=== PATIENT | male | born 1945 | race Caucasian/White ===

== ENCOUNTER 2019-05-09 08:55 | Inpatient (IN) | payer MEDICARE ==
--- NOTE | 2019-05-09 10:02 | CON ---
DATE OF CONSULTATION: 05/09/2019 HISTORY OF PRESENT ILLNESS: This is a 73-year-old gentleman who has been developing progressive dyspnea on exertion with no chest pain. This has been progressive over the last 2 months and he went to see Dr. Thakur, who recommended Dr. Hernandez perform an evaluation. He has multiple cardiovascular risk factors including hypertension, dyslipidemia, and age. 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 He has had a diagnosis of fibromyalgia for which he is on low-dose prednisone. MEDICATIONS: His other medications include the prednisone, irbesartan 150 mg daily, finasteride 5 mg daily, Flomax 0.4 a day, prednisone 5 mg a day. PAST SURGICAL HISTORY: Bilateral cataract procedures, lipoma removal from his back, and UroLift by Dr. Schreiber. Retinal artery detachment, treated with 2 procedures. SOCIAL HISTORY: He has not smoked in greater than 10 years. He is and his is currently being treated for liver cancer. He is accompanied today by his daughter. PHYSICAL EXAMINATION: GENERAL: He is alert, cooperative gentleman, in no distress. No discomfort. VITAL SIGNS: Blood pressure of 150/85, heart rate 78, weight 194. NECK: No carotid bruits. HEAD, EARS, EYES, NOSE, AND THROAT: His right lid is somewhat droopy. HEART: Regular rate and rhythm. No murmurs. LUNGS: Clear to auscultation. ABDOMEN: Soft, nontender. EXTREMITIES: No edema. Palpable pedal pulses. PLAN: Cardiac catheterization today shows critical stenosis in the mid to distal right coronary artery with a small nondominant circumflex system without significant disease in LAD with about a 60% to 70% stenosis involving a larger diagonal and then about 40% stenosis in the LAD after that. Dr. Hernandez feels that surgical intervention is more appropriate than stenting at this time, so we will plan on coronary bypass grafting to the LAD, diagonal and right coronary artery. Informed consent has been obtained. Job ID: [id number]
[2019-05-09] MEDS ORDERED: Norepinephrine 4 MG/4 ML VIAL ONE (10:28)
[2019-05-09] MEDS ORDERED: Fentanyl 100 MCG/2 ML VIAL ONE (10:29)
[2019-05-09] MEDS ORDERED: Nitroglycerin 50 MG/250 ML BOT 250 ML ONE (10:29)
[2019-05-09] MEDS ORDERED: Albumin 5% 500 ML ONE (10:42)
[2019-05-09 10:45] VITALS: BMI 26.2
[2019-05-09] MEDS ORDERED: Aminocaproic Acid 5 GM/20 ML VIAL ONE (10:48)
[2019-05-09] MEDS ORDERED: Calcium Chloride 1 GM/10 ML Abboject SYRINGE ONE (10:48)
[2019-05-09] MEDS ORDERED: Thrombin 5000 UNITS/5 ML VIAL ONE (10:48)
[2019-05-09] MEDS ORDERED: Sodium Bicarb 50 MEQ/50 ML Abboject 8.4% SYRINGE ONE (10:48)
[2019-05-09] MEDS ORDERED: PROPOFOL 200 MG/20 ML VIAL ONE (10:48)
[2019-05-09] MEDS ORDERED: Rocuronium Bromide 10 MG/ML (10ML VIAL) ONE (10:48)
[2019-05-09] MEDS ORDERED: Magnesium Sulfate 1 GM/2 ML VIAL ONE (10:48)
[2019-05-09] MEDS ORDERED: Papaverine 60 MG/2 ML VIAL ONE (10:48)
[2019-05-09] MEDS ORDERED: Protamine Sulfate 250 MG/25 ML VIAL ONE (10:48)
[2019-05-09] MEDS ORDERED: Heparin 5,000 UNITS/ML VIAL ONE (10:48)
[2019-05-09] MEDS ORDERED: Lidocaine 2% PF 5 ML VIAL ONE (10:48)
[2019-05-09] MEDS ORDERED: Cardioplegic Soln 1,000 ML BAG ONE (10:48)
[2019-05-09] MEDS ORDERED: Potassium Chloride 60 MEQ/30 ML VIAL ONE (10:48)
[2019-05-09] MEDS ORDERED: Heparin 30,000 units/30 ml VIAL ONE (10:48)
[2019-05-09] MEDS ORDERED: Vecuronium 10 MG VIAL ONE (10:48)
[2019-05-09] MEDS ORDERED: Heparin 10,000 UNITS/1 ML VIAL 30,000 UNITS in Sodium Chloride 0.9% 1,000 ML FS SCH (11:00)
[2019-05-09] MEDS ORDERED: Sodium Chloride 0.9% 1,000 ML IV SCH (11:15)
[2019-05-09] MEDS ORDERED: Midazolam HCl 2 mg/2 ml Vial ONE (11:25)
[2019-05-09] MEDS ORDERED: Ketamine 50 MG/ML (10ML VIAL) ONE (11:25)
[2019-05-09] MEDS ORDERED: Prevnar 13-Val Conj/PF 0.5 ML SYRINGE IM ONE (12:15)
[2019-05-09] MEDS ORDERED: PHENYLEPHRINE-NS 100 MCG/ML 10 ML SYRINGE ONE (12:49)
[2019-05-09] MEDS ORDERED: Bisacodyl 5 MG TAB PO PRN (14:34)
[2019-05-09] MEDS ORDERED: Guaifenesin DM 100-10/5 ML UDCUP PO PRN (14:34)
[2019-05-09] MEDS ORDERED: Morphine 2 MG/ML SYRINGE SLOW IVP PRN (14:34)
[2019-05-09] MEDS ORDERED: Post-Op Insulin Drip Protocol IVPB ONE (14:34)
[2019-05-09] MEDS ORDERED: Promethazine HCl 25 MG/ML VIAL IM PRN (14:34)
[2019-05-09] MEDS ORDERED: Norepinephrine 8 MG in Dextrose 5% in Water 242 ML IVPB PRN (14:34)
[2019-05-09] MEDS ORDERED: Potassium Chloride 20 MEQ/100 ML PREMIX BAG IVPB PRN (14:34)
[2019-05-09] MEDS ORDERED: Fentanyl 100 MCG/2 ML VIAL SLOW IVP PRN (14:34)
[2019-05-09] MEDS ORDERED: Acetaminophen 325 MG TAB PO PRN (14:34)
[2019-05-09] MEDS ORDERED: Magnesium 2 GM/50 ML 2 GM in Premix Bag 1 BAG IVPB SCH (14:34)
[2019-05-09] MEDS ORDERED: Ondansetron PF 4 MG/2 ML Vial IVP PRN (14:34)
[2019-05-09] MEDS ORDERED: Mag-Al 1200 mg/1200 mg/30 ML UDCUP PO PRN (14:34)
[2019-05-09] MEDS ORDERED: predniSONE 1 MG TAB PO SCH (14:34)
[2019-05-09] MEDS ORDERED: Hetastarch 6% 500 ML 500 ML IVPB PRN (14:34)
[2019-05-09] MEDS ORDERED: Nitroglycerin 50 MG/250 ML BOT 250 ML IVPB PRN (14:34)
[2019-05-09] MEDS ORDERED: HYDROcodone/Acetaminophen 5/325 mg Tablet PO PRN (14:34)
[2019-05-09] MEDS ORDERED: Bisacodyl 10 MG SUPP PR PRN (14:34)
[2019-05-09] MEDS ORDERED: hydrALAZINE 20 MG/ML VIAL SLOW IVP PRN (14:34)
[2019-05-09] MEDS ORDERED: DOPamine 400 MG/D5W 250 ML 250 ML IVPB PRN (14:34)
[2019-05-09] MEDS ORDERED: niCARdipine 25 MG in Sodium Chloride 0.9% 250 ML 250 ML IVPB PRN (14:34)
[2019-05-09 14:54] LABS: Base Excess (BEa) -0.9 mEq/L (-2.0 to +3.0); CO2 Tension 40.7 mmHg (35.0-45.0); Calcium, Ionized 1.14 mmol/L (1.12-1.30); Carboxyhemoglobin (COHb) 0.5 gm% (0.0-3.0); Hemoglobin (Hb) 13.7 g/dL (14.0-18.0); O2 Tension (PaO2) 246.1 mmHg (> 70.0); Potassium - ABG Lab 3.29 mmol/L (3.70-5.30); pH, Arterial 7.39 (7.35-7.45)
[2019-05-09 14:55] LABS: ALV-art Gradient 130.825 (0-20); Puncture Site ALINE
[2019-05-09] MEDS ORDERED: HUMULIN R 100 UNITS in Sodium Chloride 0.9% 100 ML IVPB SCH (15:02)
[2019-05-09] MEDS ORDERED: Dextrose 50% Abboject 50 ML SYRINGE SLOW IVP PRN (15:02)
[2019-05-09] MEDS ORDERED: Insulin Regular 300 UNITS/3 ML VIAL SC PRN (15:02)
[2019-05-09] MEDS ORDERED: Dextrose 5% in Water 1,000 ML IV PRN (15:02)
--- NOTE | 2019-05-09 15:04 | RAD ---
CHEST 1 VIEW: Date: 05/09/2019 HISTORY: Postop open heart surgery. FINDINGS: Chest tubes, endotracheal tube, and right central line in place. Heart size is within normal limits. The lungs appear clear of acute process. No pneumothorax or significant pleural effusion. IMPRESSION: No significant acute process. No pneumothorax. POS: RRE
[2019-05-09 15:06] LABS: INR-International Normal Ratio 1.3; PTT 27.8 SEC (22.9-36.1); Prothrombin Time 16.5 SEC (12.0-14.7)
[2019-05-09 15:07] LABS: #Eosinphils 0.1 thou/uL (0.0-0.7); #Monocytes 1.1 thou/uL (0.11-0.59); #Neutrophils 14.2 thou/uL (1.40-6.50); %Basophils 0.1 % (0.0-1.0); %Eosinophils 0.5 % (0.0-10.0); %Lymphocytes 5.9 % (21.0-51.0); %Monocytes 6.7 % (0.0-10.0); %Neutrophils 86.7 % (42.0-75.0); Hemoglobin 14.4 g/dL (14.0-18.0); Mean Corpuscular HGB CONC 34.5 g/dL (32.0-36.0); Mean Corpuscular Volume 89.6 fL (78.0-98.0); Mean Platelet Volume 8.2 fL (7.4-10.4); Platelet Count 115 thou/uL (130-400); RBC Distribution Width 11.8 % (11.5-14.5); Red Blood Cell (RBC) Count 4.66 mill/uL (4.70-6.10); White Blood Cell (WBC) Count 16.4 thou/uL (4.8-10.8)
[2019-05-09] MEDS: Sodium Chloride 0.9% 1,000 ML IV SCH (15:10)
[2019-05-09 15:17] LABS: Anion Gap 9 mmol/L (10-20); BUN (Urea Nitrogen) 12 mg/dL (8.4-25.7); Calc. Creatinine Clearance 101 mL/min (70-130); Calcium 7.8 mg/dL (7.8-10.44); Carbon Dioxide 25 mmol/L (23-31); Chloride 111 mmol/L (98-107); Estimated GFR-MDRD Greater than 90; Glucose 107 mg/dL (83-110); Potassium 3.3 mmol/L (3.5-5.1); Sodium 142 mmol/L (136-145)
[2019-05-09 15:18] LABS: Platelet Morphology Comment Appears Decreased; RBC Morphology Normal
[2019-05-09] MEDS: CEFAZOLIN 2 GM in Premix Bag 1 BAG IVPB SCH ×2 (16:02→23:06)
[2019-05-09] MEDS: Ketorolac Tromethamine 30 MG/ML VIAL IVP SCH ×2 (17:17→23:07)
[2019-05-09 19:09] LABS: Actual Bicarbonate (HCO3a) 19.1 mEq/L (22-28); CO2 Tension 27.1 mmHg (35.0-45.0); Calcium, Ionized 1.08 mmol/L (1.12-1.30); Carboxyhemoglobin (COHb) 0.5 gm% (0.0-3.0); Hemoglobin (Hb) 14.8 g/dL (14.0-18.0); O2 Tension (PaO2) 181.3 mmHg (> 70.0); Potassium - ABG Lab 3.49 mmol/L (3.70-5.30); pH, Arterial 7.47 (7.35-7.45)
[2019-05-09 19:11] LABS: Puncture Site LINE
[2019-05-09 19:12] LABS: ALV-art Gradient 70.025 (0-20)
[2019-05-09] MEDS: Fentanyl 100 MCG/2 ML VIAL SLOW IVP PRN ×3 (19:38→23:49)
[2019-05-09 20:25] LABS: Hemoglobin 14.9 g/dL (14.0-18.0)
[2019-05-09] MEDS: HYDROcodone/Acetaminophen 5/325 mg Tablet PO PRN (20:28)
[2019-05-09 20:43] LABS: Potassium 3.4 mmol/L (3.5-5.1)
[2019-05-09] MEDS: Famotidine/PF 20 mg/2ml Vial SLOW IVP SCH (21:42)
[2019-05-10] MEDS: HYDROcodone/Acetaminophen 5/325 mg Tablet PO PRN ×4 (03:01→23:13)
[2019-05-10] MEDS: Sodium Chloride 0.9% 1,000 ML IV SCH ×2 (03:05→11:14)
[2019-05-10 05:30] LABS: Anion Gap 11 mmol/L (10-20); BUN (Urea Nitrogen) 10 mg/dL (8.4-25.7); Calc. Creatinine Clearance 100 mL/min (70-130); Calcium 7.6 mg/dL (7.8-10.44); Carbon Dioxide 24 mmol/L (23-31); Chloride 107 mmol/L (98-107); Estimated GFR-MDRD Greater than 90; Glucose 102 mg/dL (83-110); Potassium 3.6 mmol/L (3.5-5.1); Sodium 138 mmol/L (136-145)
[2019-05-10] MEDS: Fentanyl 100 MCG/2 ML VIAL SLOW IVP PRN ×2 (05:54→07:59)
[2019-05-10] MEDS: Ketorolac Tromethamine 30 MG/ML VIAL IVP SCH ×2 (06:31→11:09)
[2019-05-10] MEDS: Atorvastatin Calcium 20 MG TAB PO SCH (07:51)
[2019-05-10] MEDS: Finasteride 5 MG TAB PO SCH (07:51)
[2019-05-10] MEDS: Tamsulosin HCl 0.4 MG CAP PO SCH (07:51)
[2019-05-10] MEDS: Famotidine/PF 20 mg/2ml Vial SLOW IVP SCH (07:52)
[2019-05-10] MEDS: CEFAZOLIN 2 GM in Premix Bag 1 BAG IVPB SCH (07:53)
--- NOTE | 2019-05-10 08:02 | PRG ---
DATE OF SERVICE: 05/10/2019 SUBJECTIVE: Mr. Desouza is doing very well postoperatively. He had urgent bypass surgery yesterday. OBJECTIVE: VITAL SIGNS: His blood pressure is 160/68 earlier, but most recently was 92/54. LUNGS: Clear. CARDIAC: Normal S1, normal S2. ABDOMEN: Soft, nontender. EXTREMITIES: No edema. ASSESSMENT: Status post emergency coronary artery bypass grafting, doing very well. PLAN: 1. Continue current medical regimen. 2. We will start beta blockers later for atrial fibrillation prophylaxis once blood pressure increases. Job ID: [id number] [facility]
--- NOTE | 2019-05-10 08:41 | RAD ---
PORTABLE CHEST: Date: 05/10/2019 PROVIDED CLINICAL HISTORY: Post open heart. FINDINGS: Comparison with 05/09/2019. Interval extubation. Additional significant interval change with respect to the prior examination is not apparent. IMPRESSION: As above. POS: LATOYA
[2019-05-10] MEDS ORDERED: Aspirin 325 MG TAB PO SCH (09:00)
[2019-05-10 10:08] LABS: #Lymphocytes 0.7 thou/uL (1.20-3.40); #Monocytes 1.1 thou/uL (0.11-0.59); #Neutrophils 8.9 thou/uL (1.40-6.50); %Basophils 0.1 % (0.0-1.0); %Eosinophils 0.1 % (0.0-10.0); %Lymphocytes 6.8 % (21.0-51.0); %Monocytes 9.9 % (0.0-10.0); Hemoglobin 14.5 g/dL (14.0-18.0); Mean Corpuscular HGB CONC 34.2 g/dL (32.0-36.0); Mean Corpuscular Hemoglobin 31.2 pg (27.0-31.0); Mean Corpuscular Volume 91.2 fL (78.0-98.0); Mean Platelet Volume 8.8 fL (7.4-10.4); Platelet Count 135 thou/uL (130-400); Red Blood Cell (RBC) Count 4.65 mill/uL (4.70-6.10); White Blood Cell (WBC) Count 10.7 thou/uL (4.8-10.8)
--- NOTE | 2019-05-10 10:19 | PRG ---
DATE OF SERVICE: 05/10/2019 SUBJECTIVE: The patient has been stable post CABG yesterday with blood pressure of about 100 to 110, heart rate of about 70. Chest tube output totals at 330. His hemoglobin was not checked this morning, but last night was about 14. His renal function is normal. His potassium was slightly depressed prior to potassium replacement. His chest x-ray was satisfactory. He has been up in the chair this morning, but currently is in bed without complaints. Lungs are clear. Chest dressing is dry. PLAN: At this time is to transfer him to the telemetry unit and probably remove his Portillo and chest tubes tomorrow. The patient has no complaints at present. Job ID: [id number]
[2019-05-10] MEDS ORDERED: Ondansetron PF 4 MG/2 ML Vial IVP PRN (11:51)
[2019-05-10] MEDS ORDERED: Mag-Al 1200 mg/1200 mg/30 ML UDCUP PO PRN (11:51)
[2019-05-10] MEDS ORDERED: Bisacodyl 10 MG SUPP PR PRN (11:51)
[2019-05-10] MEDS ORDERED: Acetaminophen 325 MG TAB PO PRN (11:51)
[2019-05-10] MEDS ORDERED: Nitroglycerin 0.4 MG TAB (25 Tab Bottle) SL PRN (11:51)
[2019-05-10] MEDS ORDERED: Fentanyl 100 MCG/2 ML VIAL SLOW IVP PRN (11:51)
[2019-05-10] MEDS ORDERED: HYDROcodone/Acetaminophen 5/325 mg Tablet PO PRN (11:51)
[2019-05-10] MEDS ORDERED: Milk Of Magnesia 30 ML UDCUP PO PRN (11:51)
[2019-05-10] MEDS ORDERED: Guaifenesin DM 100-10/5 ML UDCUP PO PRN (11:51)
[2019-05-10] MEDS ORDERED: Mineral Oil ENEMA PR PRN (11:51)
[2019-05-10] MEDS: Enoxaparin Sodium 30 MG/0.3 ML SYRINGE SC SCH (20:46)
[2019-05-10] MEDS: Famotidine 20 MG TAB PO SCH (20:47)
[2019-05-11] MEDS: HYDROcodone/Acetaminophen 5/325 mg Tablet PO PRN ×2 (05:35→19:11)
[2019-05-11] MEDS ORDERED: Metoprolol Tartrate 25 MG TAB PO SCH (09:00)
--- NOTE | 2019-05-11 09:02 | OP ---
DATE OF PROCEDURE: 05/09/2019 PREOPERATIVE DIAGNOSIS: Coronary artery disease. PROCEDURES PERFORMED: Coronary artery bypass graft x3, left internal mammary artery to the left anterior descending with the left anterior descending being about 1.5 mm, a soft vessel, saphenous vein good quality to a 2 mm diagonal and a 3 mm right coronary artery done just at the takeoff of the posterior descending artery, but on the main right coronary artery. PETROLEUM GEOLOGIST: Bassam. TRANSFUSION: None. DESCRIPTION OF PROCEDURE: After adequate anesthesia had been obtained, the patient was prepped and draped. Dr. Banegas did an endovascular vein harvest on the left greater saphenous vein while I performed a median sternotomy. After opening the sternum, left internal mammary artery was harvested and divided distally after heparinization and treated with intraluminal papaverine. It was brought medial to the lung, posterior to the thymus gland. Due to hyperexpanded lungs, the entire length of mammary artery was utilized. Aorta and right atrium were cannulated and cardiopulmonary bypass was begun. After cross-clamping the aorta, a liter of cold blood cardioplegia was given through the aortic root. Following this, vessels were bypassed x3 and the cross-clamp was removed and the partial occluding clamp placed. Two proximal venous anastomosis were performed on the aortic root and marked with rings. Distal anastomoses were hemostatic and the patient was weaned from cardiopulmonary bypass. Cannula was removed and the aortic cannulation site secured with a 4-0 Prolene suture. Mediastinal drains x2 were placed, following which the sternum was reapproximated with #7 interrupted wire using vancomycin paste on the sternal edges, platelet-rich blood and platelet-poor plasma. Subcutaneous tissue and skin were closed in layers. Job ID: [id number]
[2019-05-11] MEDS: Polyethylene Glycol 3350 17 GM Packet PO SCH (09:04)
[2019-05-11] MEDS: Bisacodyl 5 MG TAB PO PRN (09:04)
[2019-05-11] MEDS: predniSONE 1 MG TAB PO SCH (09:05)
[2019-05-11] MEDS: Atorvastatin Calcium 20 MG TAB PO SCH (09:06)
[2019-05-11] MEDS: Aspirin 325 mg Enteric Coated Tablet PO SCH (09:07)
[2019-05-11] MEDS: Famotidine 20 MG TAB PO SCH ×2 (09:07→20:11)
[2019-05-11] MEDS: Tamsulosin HCl 0.4 MG CAP PO SCH (09:07)
[2019-05-11] MEDS: Finasteride 5 MG TAB PO SCH (09:07)
--- NOTE | 2019-05-11 09:37 | PRG ---
DATE OF SERVICE: 05/11/2019 SUBJECTIVE: Mr. Desouza is doing really very well. He did have some lightheadedness when he sat up in the chair, it sounds like he had some orthostasis, but now he is sitting in the chair, feeling fine. OBJECTIVE: VITAL SIGNS: His blood pressure in the chart was recorded at 160 systolic, but it was 106 systolic in the correction most recently, pulse is 90. LUNGS: Clear. CARDIAC: Normal S1. Normal S2. ABDOMEN: Soft and nontender. ASSESSMENT: Blood pressure is somewhat labile postoperatively. PLAN: 1. I resume beta-dale later today but will reduce dose in view of orthostasis. 2. Dr. Hernandez to return tomorrow. Job ID: [id number]
--- NOTE | 2019-05-11 09:47 | PRG ---
DATE OF SERVICE: 05/11/2019 The patient had slightly elevated blood pressures overnight 130 to 160. However, this morning, sitting in a chair, it is about 110 and he is somewhat lightheaded, although normal in conversation. His chest tube output was 30 for the past 12 hours and these two drains were removed. His Portillo catheter was removed earlier. His lungs are clear and his chest dressing is dry. Plan on ambulation today and hopefully we can move forward with gentle diuresis and perhaps start some low-dose beta dale tomorrow. Job ID: [id number]
[2019-05-11] MEDS: Enoxaparin Sodium 30 MG/0.3 ML SYRINGE SC SCH (20:11)
[2019-05-12] MEDS: Potassium Chloride 10 MEQ TAB PO SCH (07:24)
[2019-05-12] MEDS: Furosemide 40 MG TAB PO SCH (07:24)
[2019-05-12] MEDS: Atorvastatin Calcium 20 MG TAB PO SCH (08:46)
[2019-05-12] MEDS: Aspirin 325 mg Enteric Coated Tablet PO SCH (08:46)
[2019-05-12] MEDS: Famotidine 20 MG TAB PO SCH ×2 (08:47→20:22)
[2019-05-12] MEDS: Finasteride 5 MG TAB PO SCH (08:47)
[2019-05-12] MEDS: Polyethylene Glycol 3350 17 GM Packet PO SCH (08:49)
[2019-05-12] MEDS: Tamsulosin HCl 0.4 MG CAP PO SCH (08:50)
[2019-05-12] MEDS: predniSONE 1 MG TAB PO SCH (08:50)
[2019-05-12] MEDS: Enoxaparin Sodium 30 MG/0.3 ML SYRINGE SC SCH (20:23)
[2019-05-12] MEDS: Bisacodyl 5 MG TAB PO PRN (20:29)
[2019-05-13] MEDS: Furosemide 40 MG TAB PO SCH (09:34)
[2019-05-13] MEDS: Atorvastatin Calcium 20 MG TAB PO SCH (09:34)
[2019-05-13] MEDS: Finasteride 5 MG TAB PO SCH (09:34)
[2019-05-13] MEDS: Tamsulosin HCl 0.4 MG CAP PO SCH (09:34)
[2019-05-13] MEDS: Famotidine 20 MG TAB PO SCH (09:35)
[2019-05-13] MEDS: Aspirin 325 mg Enteric Coated Tablet PO SCH (09:35)
[2019-05-13] MEDS: Potassium Chloride 10 MEQ TAB PO SCH (09:35)
[2019-05-13] MEDS: Polyethylene Glycol 3350 17 GM Packet PO SCH (09:36)
[2019-05-13] MEDS: predniSONE 1 MG TAB PO SCH (09:57)
[2019-05-13 11:39] VITALS: BP 120/78; TEMP 98.8
--- NOTE | 2019-05-13 14:15 | DIS ---
DATE OF ADMISSION: 05/09/2019 DATE OF DISCHARGE: 05/13/2019 HOSPITAL COURSE: The patient was admitted on 05/08 following cardiac catheterization showing severe coronary artery disease. He underwent coronary artery bypass grafting x3 with a HOOD to the LAD, saphenous vein to a diagonal and a right coronary artery. His postoperative course was uneventful with no arrhythmias. He did however have a failure to void after removal of his Portillo with a 925 mL residual and a history of previous bladder and prostate problems, followed by Dr. Schreiber. He will be discharged home on his admitting medications except for his irbesartan, which is on hold and he will receive a prescription for Toprol-XL 25 half a tablet daily as well as Cameron 5. He will need a followup visit at least by phone with Dr. Schreiber to make plans for how long to leave his Portillo catheter and whether self catheterization will be needed at home. He is on Proscar and Flomax. Job ID: [id number]
== END 2019-05-13 11:47 | disposition home or self-care (01) | DRG 236 ==
LOC: CCU 08:55 → UNDOADMIN 08:55 → CCU 09:50 → 2NO 05-10 11:36
PROVIDERS: ADMIT Internal Medicine Cardiovascular Disease; ATTEND Internal Medicine Cardiovascular Disease
PROC: 02100Z9 Bypass Coronary Artery, One Artery from Left Internal Mammary, Open Approach (ICD-10-PCS; principal; 2019-05-09)
PROC: 06BP4ZZ Excision of Right Saphenous Vein, Percutaneous Endoscopic Approach (ICD-10-PCS; 2019-05-09)
PROC: 5A1221Z Performance of Cardiac Output, Continuous (ICD-10-PCS; 2019-05-09)
PROC: 021109W Bypass Coronary Artery, Two Arteries from Aorta with Autologous Venous Tissue, Open Approach (ICD-10-PCS; 2019-05-09)
DX: I25.10 Atherosclerotic heart disease of native coronary artery without angina pectoris (principal); M79.7 Fibromyalgia; I10 Essential (primary) hypertension; E78.5 Hyperlipidemia, unspecified; Z98.42 Cataract extraction status, left eye; Z98.41 Cataract extraction status, right eye
CPT/HCPCS: 36415; 36416; 36430; 71045; 80048; 82805; 85025; 85347; 85610; 85730; 86850; 86900; 86901; 93005; 93010; 93798; 94002; J0360; J0690; J1644; J1650; J1815; J1885; J2001; J2250; J2270; J2440; J2704; J2720; J3010; J3370; J3475; J3480; J7512; P9045; S0017; S0028

== ENCOUNTER 2023-01-22 10:28 | Outpatient (CLI) | payer MEDICARE | END 2023-01-22 10:29 | disposition home or self-care (01) | LOC: RAD 10:28 | PROVIDERS: ATTEND Family Medicine | DX: M25.552 Pain in left hip (principal); M79.672 Pain in left foot; M16.12 Unilateral primary osteoarthritis, left hip ==

== ENCOUNTER 2023-03-07 14:27 | Outpatient (CLI) | payer MEDICARE | END 2023-03-07 14:28 | disposition home or self-care (01) | LOC: SCSMRI 14:27 | PROVIDERS: ATTEND Orthopaedic Surgery | DX: M48.061 Spinal stenosis, lumbar region without neurogenic claudication (principal); M51.36 Other intervertebral disc degeneration, lumbar region; M47.816 Spondylosis without myelopathy or radiculopathy, lumbar region; M51.37 Other intervertebral disc degeneration, lumbosacral region; M48.07 Spinal stenosis, lumbosacral region | CPT/HCPCS: 72148 ==

== ENCOUNTER 2023-07-18 10:12 | Day surgery (SDC) | payer MEDICARE ==
[2023-07-13 13:33] VITALS: BMI 25.7
[2023-07-13 13:44] LABS: Hematocrit 43.8 % (38.8-50.0); Hemoglobin 14.8 g/dL (13.5-17.5); Mean Corpuscular HGB CONC 33.8 g/dL (32.0-36.0); Mean Corpuscular Hemoglobin 30.8 pg (27.0-33.0); Mean Corpuscular Volume 91.3 fL (81.2-95.1); Mean Platelet Volume 10.4 fL (7.4-10.4); Platelet Count 150 10x3/uL (150-450); RBC Distribution Width 13.9 % (11.5-14.5); White Blood Cell (WBC) Count 7.4 10x3/uL (3.5-10.5)
[2023-07-13 14:02] LABS: Anion Gap 12 mmol/L (10-20); BUN (Urea Nitrogen) 22 mg/dL (8.4-25.7); Calc. Creatinine Clearance 60 mL/min (70-130); Calcium 8.6 mg/dL (7.8-10.44); Carbon Dioxide 27 mmol/L (23-31); Chloride 107 mmol/L (98-107); Estimated GFR 57; Glucose 96 mg/dL (83-110); Potassium 4.3 mmol/L (3.5-5.1); Sodium 142 mmol/L (136-145)
[2023-07-13 14:05] LABS: INR-International Normal Ratio 1.2; Prothrombin Time 12.7 sec (9.5-12.1)
[2023-07-18] MEDS ORDERED: Heparin 10,000 UNITS/ 10 ML VIAL ONE (10:23)
[2023-07-18] MEDS ORDERED: Protamine Sulfate 50 MG/5 ML VIAL ONE (10:23)
[2023-07-18] MEDS ORDERED: Isoproterenol 0.2 MG/1 ML AMP ONE (10:24)
[2023-07-18] MEDS ORDERED: Heparin 25,000 units/D5W 500 ML ONE (10:24)
[2023-07-18] MEDS ORDERED: fentaNYL PF 100 MCG/2 ML SYRINGE ONE (12:56)
[2023-07-18] MEDS ORDERED: PROPOFOL 20 ML ONE (12:56)
[2023-07-18] MEDS ORDERED: Sevoflurane 250 ML INH ANEST BOTTLE ONE (13:19)
[2023-07-18] MEDS ORDERED: SUCCINYLCHOLINE/SOD CL,ISO/PF 200 MG/10 ML SYRINGE FS ONE (13:22)
[2023-07-18] MEDS ORDERED: ePHEDrine Sulfate 50 MG/10 ML VIAL ONE (13:58)
[2023-07-18] MEDS ORDERED: fentaNYL 50 mcg/mL 1 mL Vial ONE (14:31)
[2023-07-18] MEDS ORDERED: PHENYLEPHRINE-NS 100 MCG/ML 10 ML SYRINGE ONE (14:53)
[2023-07-18] MEDS ORDERED: Dexamethasone 20 MG/5 ML VIAL ONE (15:17)
[2023-07-18] MEDS ORDERED: Ondansetron PF 4 MG/2 ML Vial ONE (15:17)
== END 2023-07-18 20:00 | disposition home or self-care (01) ==
LOC: SDC 10:12
PROVIDERS: ATTEND Internal Medicine Cardiovascular Disease
PROC: 02583ZZ Destruction of Conduction Mechanism, Percutaneous Approach (ICD-10-PCS; principal; 2023-07-18)
PROC: 4A027FZ Measurement of Cardiac Rhythm, Via Natural or Artificial Opening (ICD-10-PCS; 2023-07-18)
PROC: 4A0274Z Measurement of Cardiac Electrical Activity, Via Natural or Artificial Opening (ICD-10-PCS; 2023-07-18)
DX: I48.19 Other persistent atrial fibrillation (principal); I48.4 Atypical atrial flutter; I25.10 Atherosclerotic heart disease of native coronary artery without angina pectoris; I25.5 Ischemic cardiomyopathy; I11.0 Hypertensive heart disease with heart failure; I50.20 Unspecified systolic (congestive) heart failure; E78.00 Pure hypercholesterolemia, unspecified; N40.0 Benign prostatic hyperplasia without lower urinary tract symptoms; Z79.01 Long term (current) use of anticoagulants; Z79.82 Long term (current) use of aspirin; Z79.899 Other long term (current) drug therapy; Z88.8 Allergy status to other drugs, medicaments and biological substances; Z88.1 Allergy status to other antibiotic agents; Z87.891 Personal history of nicotine dependence; Z95.1 Presence of aortocoronary bypass graft; Z98.890 Other specified postprocedural states
CPT/HCPCS: 80048; 85027; 85347 ×2; 85610; 85730; 93005; 93622; 93623; 93655; 93656; 93657; C1732 ×3; C1759; C1760; C1894 ×2; J1100; J1644 ×2; J2405; J2704; J2720; J3010